=== PATIENT | female | born 1965 | race Caucasian/White ===

== ENCOUNTER → 2018-09-08 11:33 | Outpatient (CLI) | payer BC, SELFPAY ==
[2018-09-08 13:02] LABS: Microalbumin,Random Urine 74.6 mg/L (NO RANGE EST.); Microalbumin:Creatinine Ratio 53.7 mg/g CRE (<30 mg/g CRE)
== END ==
PROVIDERS: Family Provider Family Medicine; PCP Family Medicine; Visit Provider Internal Medicine Nephrology
DX: E11.22 Type 2 diabetes mellitus with diabetic chronic kidney disease (principal); N18.9 Chronic kidney disease, unspecified
CPT/HCPCS: 82043; 82570

== ENCOUNTER 2020-09-06 13:51 | Outpatient (RCR) | payer BC, SELFPAY | END 2020-11-19 23:59 | LOC: IMMUN 13:51 | PROVIDERS: PCP Family Medicine; Visit Provider Family Medicine | DX: Z23 Encounter for immunization (principal) | CPT/HCPCS: 0001A; 0002A; 91300 ==

== ENCOUNTER → 2025-06-04 | Outpatient (CLI) | payer BC, SELFPAY ==
--- NOTE | 2025-06-04 09:45 | BRBX_PTH ---
PATIENT: RADHA ISRAEL LOC: [facility] U#:[id number] AGE/SX: 59/F ROOM: RE06/04/[address]: Dr. Rick Mitchell MD : 1965 BED: DIS: 06/04/2025 SPEC #: [id number] RECD: 06/04/25 10:24 STATUS: ALONSO REQ #: [id number] DUTCH: 06/04/25 09:[address]: Rick Mitchell DEPT: SURGICAL PATHOLOGY RECD BY: Duc Morris ENTERED: 06/04/25 14:50 SP TYPE: BREAST BX OTHR DR: Rita Vitale Tissues: A - Right breast, NOS Procedures: Immunohistochemical Stains Surgery Specimen Level IV IHC Stain ADDITIONAL HEADER OPERATION: Right breast biopsy PRE-OP DIAGNOSIS: Right breast mass TISSUE SUBMITTED: Right breast tissue MICROSCOPIC DIAGNOSIS A. 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 - Tubule 1, nuclear 2, mitosis 1. - E-cadherin supports the diagnosis. - ER: positive (80-90%, strong intensity). - VA: positive (70%, strong intensity). - HER2 IHC: equivocal (score 2+). - HER2 FISH: pending at [facility], to be reported in an addendum. - Ki67: < 5%. MICROSCOPIC DESCRIPTION Slides are reviewed. All matched controls reacted appropriately. These tests were developed and their performance characteristics determined by Laboratory. They may not have been cleared or approved by the [place]. Food and Drug Administration. The FDA has determined that such clearance or approval is not necessary. The above immunohistochemical markers are viewed by the Pathologist. GROSS DESCRIPTION A. Received in formalin labeled with the patient's name and date of . Designated as R breast are 4 garner-pink to yellow tissue cores, 1.5 cm to 1.8 cm in length by 0.2 cm in diameter. Entirely submitted in 2 cassettes. Cold ischemic time: <1-minuteFormalin fixation time: 9 hours, 45 minutes SC:janee 06/04/2025 CPT: 62576,[id number]
--- NOTE | 2025-06-04 09:45 | BRBX_PTH ---
PATIENT: RADHA ISRAEL LOC: [facility] U#:[id number] AGE/SX: 59/F ROOM: RE06/04/[address]: Dr. Rick Mitchell MD : 1965 BED: DIS: 06/04/2025 SPEC #: [id number] RECD: 06/04/25 10:24 STATUS: ALONSO REQ #: [id number] DUTCH: 06/04/25 09:[address]: Rick Mitchell DEPT: SURGICAL PATHOLOGY RECD BY: Duc Morris ENTERED: 06/04/25 14:50 SP TYPE: BREAST BX OTHR DR: Rita Vitale Tissues: A - Right breast, NOS Procedures: Immunohistochemical Stains Surgery Specimen Level IV IHC Stain ADDITIONAL HEADER OPERATION: Right breast biopsy PRE-OP DIAGNOSIS: Right breast mass TISSUE SUBMITTED: Right breast tissue MICROSCOPIC DIAGNOSIS A. Breast, right, core biopsy: - Invasive ductal carcinoma, grade 1, at least 0.5 cm - see Comment. - Tubule 1, nuclear 2, mitosis 1. - E-cadherin supports the diagnosis. - ER: positive (80-90%, strong intensity). - FL: positive (70%, strong intensity). - HER2 IHC: equivocal (score 2+). - HER2 FISH: pending at [facility], to be reported in an addendum. - Ki67: < 5%. COMMENT This is an amended report. The original diagnosis of Invasive ductal carcinoma, grade 1, 1.0 cm has been changed to Invasive ductal carcinoma, grade 1, at least 0.[address] Mitchell has been informed of the amended diagnosis (via email and fax) 06/15/2025. MICROSCOPIC DESCRIPTION Slides are reviewed. All matched controls reacted appropriately. These tests were developed and their performance characteristics determined by [facility]. They may not have been cleared or approved by the [place]. Food and Drug Administration. The FDA has determined that such clearance or approval is not necessary. The above immunohistochemical markers are viewed by the Pathologist. GROSS DESCRIPTION A. Received in formalin labeled with the patient's name and date of . Designated as R breast are 4 garner-pink to yellow tissue cores, 1.5 cm to 1.8 cm in length by 0.2 cm in diameter. Entirely submitted in 2 cassettes. Cold ischemic time: <1-minuteFormalin fixation time: 9 hours, 45 minutes SC:janee 06/04/2025 CPT: [id number]
== END | disposition home or self-care (01) ==
LOC: LABSPEC 10:30
PROVIDERS: Referring Provider Surgery; Visit Provider Surgery
DX: C50.911 Malignant neoplasm of unspecified site of right female breast (principal)
CPT/HCPCS: 88305; 88341; 88342